=== PATIENT | male | born 1970 | race Caucasian/White ===

== ENCOUNTER 2018-09-04 11:54 | Observation (INO) | payer OTHER ==
[2018-09-04 12:58] LABS: ADD MAN DIFF? NO
[2018-09-04] MEDS ORDERED: NITROGLYCERIN (SL) 0.4 MG TAB SL (13:00)
[2018-09-04 13:03] LABS: WHITE BLOOD COUNT 5.8 10^3/ul (4.8-10.8)
[2018-09-04 13:03] LABS: BASOPHIL # 0.1 10^3/ul (0.0-0.1); BASOPHILS % 1.4 % (0.0-2.0); EOSINOPHILS # 0.1 10^3/ul (0.0-0.5); EOSINOPHILS % 2.1 % (0.0-7.0); HEMATOCRIT 44.2 % (42.0-52.0); HEMOGLOBIN 14.9 g/dl (14.0-18.0); LYMPHOCYTES % 35.2 % (15.0-51.0); MEAN CORPUSCULAR HEMOGLOBIN 28.2 pg (29.0-33.0); MEAN CORPUSCULAR HGB CONC 33.7 g/dl (32.0-37.0); MEAN CORPUSCULAR VOLUME 83.6 fl (82.0-101.0); MEAN PLATELET VOLUME 10.2 fl (7.4-10.4); MONOCYTE # 0.4 10^3/ul (0.3-0.9); MONOCYTES % 6.2 % (0.0-11.0); NEUTROPHIL # 3.2 10^3/ul (1.6-7.5); NEUTROPHILS % 54.6 % (39.0-77.0); PLATELET COUNT 157 10^3/UL (140-415); RED BLOOD COUNT 5.29 10^6/ul (4.70-6.10); RED CELL DISTRIBUTION WIDTH 13.2 % (11.5-14.5)
[2018-09-04] MEDS: NITROGLYCERIN 2% 1 GM OINT PKT TD (13:12)
[2018-09-04 13:18] LABS: ANION GAP 11 (5-13); BLOOD UREA NITROGEN 9 mg/dl (7-20); CALCIUM 9.6 mg/dl (8.4-10.2); CARBON DIOXIDE 25 mmol/L (21-31); CHLORIDE 105 mmol/L (97-110); Estimated GFR > 60 mL/min (>60); GLUCOSE 172 mg/dl (70-220); SODIUM 141 mmol/L (135-144)
[2018-09-04 13:26] LABS: D-DIMER 353.84 ng/ml (<460)
[2018-09-04 13:30] LABS: TROPONIN-I < 0.012 ng/ml (0.000-0.120)
[2018-09-04] MEDS ORDERED: ACETAMINOPHEN 325 MG TAB PO ×2 (14:00→17:00)
[2018-09-04] MEDS ORDERED: ONDANSETRON 4 MG INJ IV (14:00)
[2018-09-04] MEDS: METOPROLOL 100 MG TAB PO (16:14)
[2018-09-04] MEDS ORDERED: ZOLPIDEM 5 MG TAB PO (17:00)
[2018-09-04] MEDS ORDERED: NITROGLYCERIN AEROSOL (4.9 GM) (17:18)
[2018-09-04] MEDS ORDERED: SOD CHLORIDE 0.9% 100 ML (18:12)
[2018-09-04] MEDS ORDERED: IOHEXOL 100 ML (18:12)
[2018-09-04 20:03] LABS: CREATINE KINASE 51 IU/L (23-200)
[2018-09-04 20:14] LABS: CK INDEX 0.6; CK-MB 0.32 ng/ml (0.0-2.4); TROPONIN-I < 0.012 ng/ml (0.000-0.120)
[2018-09-04] MEDS: ATORVASTATIN 10 MG TAB PO (21:00)
[2018-09-05] MEDS ORDERED: AMLODIPINE 10 MG TAB PO (09:00)
== END 2018-09-04 22:40 | disposition home or self-care (01) ==
LOC: E/R 11:54 → TEL 13:55
DX: R07.89 Other chest pain (principal); I10 Essential (primary) hypertension; E78.5 Hyperlipidemia, unspecified; E11.9 Type 2 diabetes mellitus without complications; Z79.84 Long term (current) use of oral hypoglycemic drugs; F17.200 Nicotine dependence, unspecified, uncomplicated
CPT/HCPCS: 36415; 71045; 75574; 80048; 82550; 82553; 84484; 85025; 85378; 93005; 93306; 99285-25; G0378